=== PATIENT | female | born 1955 | race Caucasian/White ===

== ENCOUNTER 2017-09-22 10:05 | Inpatient (IN) | payer BC, OTHER ==
[~2017-09-22] VITALS: Ht 170.2 cm; Wt 99.8 kg
--- NOTE | ~2017-09-22 | EKG ---
[address] [place] [address] ELECTROCARDIOGRAM REPORT Name: SONG KINCAID [id number] Admission: 09/22/17 Attend Phys: Discharge: Date of : 59 Report #: [id number] THIS REPORT FOR: //name// [facility] ED Test Date: 2017-09-22 Test Time: 10:26:31 Pat Name: SONG KINCAID Department: Room: Gender: F Research Methodologist: Tania AVINA : 1955 Requested By: Rohini Yan Order Number: [id number] MD: Chetan Castillo Measurements Intervals [place] Rate: 61 P: 29 DC: 185 QRS: 18 QRSD: 107 T: 64 QT: 463 QTc: 467 Interpretive Statements Sinus rhythm Nonspecific T wave abnormality No previous ECG available for comparison Electronically Signed On 09-22-2017 11:00:42 SORORITY SUPERVISOR by Chetan Castillo [email or web address] <ELECTRONICALLY SIGNED> By: Chetan Castillo MD, [facility] 09/22/17 1100 1026 1026 Chetan Castillo MD, FACC /EPI
--- NOTE | ~2017-09-22 | CNG ---
[facility] [place] [address] CYTO-NONGYN REPORT PROCEDURE Name: RADHA LEONARD Room #: 405-P DIS IN M.R.#: [id number] Admission: 09/22/17 Date of : 59 Discharge: 09/28/17 Report #: [id number] Path Case #: [id number] CYTOPATHOLOGY REPORT COLLECTION DATE: 09/26/2017 RECEIVED DATE: 09/27/2017 SUBMITTING PHYS: Dr. Milan Juarez OTHER PHYS: Leonidas Duran M.D. Dr. Darlene Arenas CLINICAL HISTORY: Cholelithiasis, pancreatitis; See also [id number]. SPECIMEN(S) RECEIVED: A.Peritoneal fluid * * * * * * * * * * * * FINAL DIAGNOSIS: A. Peritoneal fluid: - No malignant epithelial cells identified. - Reactive mesothelial cells present in a background of marked acute inflammation and necroinflammatory debris. COMMENT: Please see also the surgical specimen ([id number]). PATHOLOGIST: Chloe Wise M.D. REPORT ELECTRONICALLY SIGNED BY: Chloe Wise M.D. DATE/TIME: 09/30/2017 13:02 * * * * * * * * * * * * GROSS PATHOLOGY: A. Peritoneal fluid: The specimen is submitted unfixed, labeled "Radha Leonard". Received by the Cytology Department is 25 mL of cloudy red fluid. One ThinPrep slide and a formalin fixed cell block were prepared. ([email or web address]) ASSOCIATE DIRECTOR QA(S): CARMEN Lara[facility] INITIAL CPT CODE(S): A; 47422, 70933 Professional services performed by [facility] at [facility] [address], [place] [address] Technical services performed by [facility] at [address] [place] [address], [address], [place] [address]. [facility] [address] [place] [address] CYTO-NONGYN REPORT PROCEDURE Name: RADHA LEONARD [facility] Room #: 405-P [facility] IN M.R.#: [id number] Admission: 09/22/17 Date of : 59 Discharge: 09/28/17 Report #: [id number] Path Case #: [id number] [facility] [address] [place] [address] [address] [place] [address] PHONE: [phone] DIRECTOR: Joseph Medley M.D. * * * END OF REPORT * * *
--- NOTE | ~2017-09-22 | O ---
[facility] [place] [address] [place] [address] OPERATIVE REPORT Name: SONG KINCAID Room #: 405-P ADM IN M.R.#: [id number] Admission: 09/22/17 Attend Phys: Leonidas Duran MD Discharge: Date of : 59 Report #: [id number] THIS REPORT FOR: //name// CC: Leonidas Christianson MD PREOPERATIVE DIAGNOSES: 1. Gallstone pancreatitis. 2. Hypertension. 3. Hypothyroidism. POSTOPERATIVE DIAGNOSES: 1. Gallstone pancreatitis. 2. Peritoneal implants. 3. Hypertension. 4. Hypothyroidism. PROCEDURE: 1. Laparoscopic cholecystectomy with intraoperative cholangiogram. 2. Peritoneal biopsy. 3. Omental biopsy. SURGEON: Milan Juarez MD CARTOGRAPHIC DRAFTER: Myriam Carrera NP ANESTHESIA: General endotracheal anesthesia and local anesthetic. ESTIMATED BLOOD LOSS: 10 mL. SPECIMEN: Peritoneal implants, omentum, peritoneal fluid, and gallbladder. COMPLICATIONS: None appreciated. INDICATIONS FOR PROCEDURE: This is a 61-year-old female patient who was seen in [facility] emergency room with acute onset abdominal pain. She was found to have a lipase of greater than 30,000. Imaging studies revealed a gallstone. Her lipase was followed and has precipitously decreased to a normal level of 191 today. The patient had undergone an MRCP that showed no evidence for choledocholithiasis. The patient presents now for laparoscopic cholecystectomy with intraoperative cholangiogram. OPERATIVE FINDINGS: Upon entrance into the abdominal cavity, peritoneal and omental implants were seen. Biopsies were taken. There was also bloody peritoneal fluid that was sent for cytology. She had mild acute cholecystitis changes, although these changes may have been more associated with the edema [facility] [address] [place] [address] OPERATIVE REPORT Name: SONG KINCAID Room #: 405-P ADM IN M.R.#: [id number] Admission: 09/22/17 Attend Phys: Leonidas Duran MD Discharge: Date of : 59 Report #: [id number] from the pancreatitis. Her cholangiogram showed filling of the biliary tree with no filling defects. Contrast flowed freely into the duodenal sweep. After removal of the gallbladder from the abdominal cavity, it was opened on the back table. Nonpigmented gallstones were present within the gallbladder. Cholesterolosis of the gallbladder wall was also present. The bile was significantly thickened. At the conclusion of the operation, sponge, needle, and instrument counts were correct. Other than the peritoneal implants, no significant intra-abdominal pathology was seen. I did inspect the uterus and ovaries as well as liver and colon. DESCRIPTION OF PROCEDURE IN DETAIL: After the benefits and risks of the procedure were explained to the patient which include but are not limited to risks of bleeding, infection, injury to the biliary tree, injury to adjacent organs, risk of DVT, pulmonary embolus, postoperative pain and postoperative expectations informed consent was obtained. The patient was identified in the preoperative holding area. The patient was then given IV antibiotics as documented in the chart to comply with the SCIP protocol. The patient was taken to the operating room and was placed in the supine position. The patient was given IV sedation and was intubated without incident. A time-out was performed to correctly identify the patient and procedure. SCDs were placed on the patient's bilateral lower extremities. The patient's abdomen was then prepped and draped in the standard sterile fashion with ChloraPrep. Local anesthetic was infiltrated into the skin and subcutaneous tissue. A periumbilical incision was made with a #15 blade scalpel. The 11-mm Visiport was then placed intraperitoneally with the 10-mm 0-degree angled laparoscope. After confirmation of placement within the peritoneal cavity, the scope was changed to a 10-mm 30 degree angled laparoscope and pneumoperitoneum was achieved with insufflation of carbon dioxide. The patient was placed in the reverse Trendelenburg position, rotated to the patient's left. A subxiphoid 5 mm and right subcostal 5 mm ports times 2 were placed under direct visualization after local anesthetic was infiltrated into the skin and subcutaneous tissue and appropriately sized incisions were made. Operative findings are as noted above. The dome of the gallbladder was retracted in a cephalad direction. The gallbladder peritoneum was scored medially and laterally after takedown of the adhesions to the gallbladder. Dissection was carried out around the cystic artery and cystic duct to identify each structure as entering directly into the gallbladder. The critical view as described above was seen. A Hemoclip was then placed on the cystic duct at its junction with the gallbladder. A ductotomy was made and the cholangiocatheter was passed into the cystic duct. A clip was placed, contrast was then injected and cholangiogram findings are as noted above. The cholangiocatheter was then removed and the cystic duct was triply clipped distal to the ductotomy. The duct was divided at the ductotomy site with the ultrasonic scalpel. The cystic artery was then divided with the device as well. The gallbladder was then dissected off the liver bed with energy device and after fully removing the gallbladder, it was [address] [address] OPERATIVE REPORT Name: SONG KINCAID Room #: 405-P [facility] IN M.R.#: [id number] Admission: 09/22/17 Attend Phys: Leonidas Duran MD Discharge: Date of : 59 Report #: [id number] placed in an Endopouch and then removed through the periumbilical port site. The abdominal cavity was then reentered. Other operative findings are as noted above. The liver bed was made hemostatic with a combination of electrocautery and other hemostatic agent as documented in the chart (Surgiflow), especially near the cholecysto-cystic junction. After ensuring final hemostasis and ensuring that the clips were secure, the periumbilical port site fascial opening was closed with a simple interrupted 0 PDS suture under direct visualization using the Luciano-Hung laparoscopic fascial closure device. The ports were removed and the abdominal cavity was desufflated. The fascial suture was tied. Interrupted subcuticular 4-0 Monocryl sutures and Dermabond were used to close the skin. The patient tolerated the procedure well. The patient was awakened, extubated and taken to the recovery room in stable condition with no apparent intraoperative complications. <ELECTRONICALLY SIGNED> By: Milan Juarez MD, FACS 09/26/17 1650 1430 1512 Milan Juarez MD, FACS /nt
--- NOTE | ~2017-09-22 | S ---
[facility] [place] [address] SURGICAL PATH RPT PROCEDURE Name: RADHA LEONARD Room #: 405-P ADM IN M.R.#: [id number] Admission: 09/22/17 Date of : 59 Discharge: Report #: [id number] Path Case #: [id number] PATHOLOGY REPORT COLLECTION DATE: 09/26/2017 RECEIVED DATE: 09/26/2017 SUBMITTING PHYS: Dr. Milan Juarez OTHER PHYS: Sonya Hall Dr. SPECIMEN(S) RECEIVED: A.Omental biopsy B.Gallbladder C.Peritoneal biopsy * * * * * * * * * * * * FINAL DIAGNOSIS: A. "Omental biopsy", biopsy: - Vascularized adipose tissue with scant fibrous tissue showing acute and chronic inflammation, necroinflammatory debris and discrete areas of fat necrosis. B. "Gallbladder", biopsy: - Acute and chronic cholecystitis. - Cholelithiasis. - Acute serositis with subserosal adipose tissue showing acute and chronic inflammation, necroinflammatory debris and discrete areas of fat necrosis. C. "Peritoneal biopsy", biopsy: - Vascularized fibroadipose connective tissue with acute and chronic inflammation, necroinflammatory debris and discrete areas of fat necrosis. (CLW:corey; 09/27/2017) PATHOLOGIST: Chloe Wise M.D. REPORT ELECTRONICALLY SIGNED BY: Chloe Wise M.D. DATE/TIME: 09/27/2017 14:39 * * * * * * * * * * * * GROSS PATHOLOGY: A. Received in formalin labeled "Radha Leonard, omental biopsy" and consists of glistening yellow orange and pink adipose tissue measuring 1.1 x 0.7 x 0.3 cm. The specimen is entirely submitted as A1. B. Received in formalin labeled "Radha Leonard, gallbladder" and consists of a previously opened gallbladder that measures 7 cm in length and 5.0 cm in circumference. The serosa is dark green. The [address] [address] SURGICAL PATH RPT PROCEDURE Name: RADHA LEONARD Room #: 405-P [facility] IN M.R.#: [id number] Admission: 09/22/17 Date of : 59 Discharge: Report #: [id number] Path Case #: [id number] wall averages 0.3 cm thick. The mucosa is velvety and green. The neck region is inked black. Also within the container are a few nodular yellow calculi ranging in size a 0.2 cm-0.7 cm and aggregate to 1.2 x 0.7 x 0.5 cm. Technical Specialist Cytogenetics sections are submitted as B1. C. Received in formalin labeled "Radha Leonard, peritoneal biopsy" and consists of 2 soft yellow tissue fragments measuring 0.2 x 0.2 x 0.1 cm and 0.9 x 0.3 x 0.2 cm. The specimen is totally submitted as C1. (ARELIS; 09/26/2017) CLINICAL HISTORY: Gallstones, pancreatitis INITIAL CPT CODE(S): A; 44925 B; 85474 C; 16698 Professional services performed by [facility] at [facility] [address], [place] [address] Technical services performed by [facility] at [address] [place] [address], [address], [place] [address]. [facility] [address] [place] [address] PHONE: [phone] DIRECTOR: Joseph Medley M.D. * * * END OF REPORT * * *
--- NOTE | ~2017-09-22 | HC ---
[facility] [place] [address] [address] [place] [address] CONSULTATION Name: SONG KINCAID Room #: 405-P ADM IN M.R.#: [id number] Admission: 09/22/17 Attend Phys: Leonidas Duran MD Discharge: Date of : 59 Report #: [id number] THIS REPORT FOR: //name// CC: Leonidas Duran Darlene Arenas DATE OF SERVICE: 09/22/2017 TYPE OF REPORT: General surgery consultation. ATTENDING PHYSICIAN: Leonidas Duran M.D. REASON FOR CONSULTATION: Abdominal pain. HISTORY OF PRESENT ILLNESS: This is a 61-year-old female patient who developed acute onset upper abdominal pain this morning around 8:00 a.m. She denies fever or chills but has had difficulty with nausea and vomiting. She was seen in the [facility] where she was found to have severely elevated lipase and abdominal ultrasound showing a gallstone in the neck of the gallbladder without acute cholecystitis changes. Multiple liver cysts were also seen. I have been asked to see the patient for further evaluation and treatment. PAST MEDICAL HISTORY: Significant for hypertension and hypothyroidism. PAST SURGICAL HISTORY: Bilateral bunionectomies. HOME MEDICATIONS: Include antihypertensive medication and thyroid medication. She is currently receiving meropenem and Dilaudid p.r.n. pain. ALLERGIES: AUGMENTIN causes inability to breathe; the patient denies oropharyngeal swelling. FAMILY HISTORY: Reviewed and noncontributory to this hospitalization and heart disease does run in her family. SOCIAL HISTORY: The patient denies use of tobacco or illicit drugs. She drinks alcohol socially. She works as a customer program specialist. REVIEW OF SYSTEMS: As per history of present illness and in addition: GENERAL: The patient denies fever or chills. Denies unintentional weight loss. HEENT: Denies changes in taste, vision, hearing or smell. RESPIRATORY: Denies shortness of breath, COPD or asthma. CARDIOVASCULAR: Denies chest pain or palpitations. GASTROINTESTINAL: As per history of present illness, denies bright red blood per rectum. GENITOURINARY: Denies dysuria, urgency, increased urinary frequency or [facility] [address] [place] [address] CONSULTATION Name: SONG KINCAID Room #: 405-P [facility] IN ..#: [id number] Admission: 09/22/17 Attend Phys: Leonidas Duran MD Discharge: Date of : 59 Report #: [id number] hematuria. MUSCULOSKELETAL: Denies myalgia, arthralgia or arthritis. NEUROLOGICAL: Denies headaches, numbness or tingling. PSYCHIATRIC: Denies depression, anxiety or suicidal ideations. SKIN AND INTEGUMENTARY: Denies new skin lesions, rashes or moles. ENDOCRINE: Denies polydipsia, polyuria, heat or cold intolerance. HEMATOLOGIC: Denies easy bleeding, bruising or anemia. All other review of systems is negative. PHYSICAL EXAMINATION: VITAL SIGNS: Temperature afebrile, blood pressure 110/76, pulse 65 and respirations 16. GENERAL: This is an obese (BMI 34.5) 61-year-old female patient accompanied by her and a son who appears uncomfortable. HEENT: Atraumatic and normocephalic with moist mucosal membranes. Oropharynx is clear. She has no scleral icterus. NECK: Supple. No appreciable lymphadenopathy. Trachea is midline. CHEST: Clear bilaterally. No crackles or wheezes. CARDIOVASCULAR: Regular rate and rhythm. S1 and S2. ABDOMEN: Obese and tender to palpation in the upper abdomen. She has mild guarding, but no rebound. No palpable masses. No appreciable hernias. GENITOURINARY: Normal external female genitalia. EXTREMITIES: No clubbing, cyanosis or edema. NEUROLOGICAL: Cranial nerves 2 through 12 grossly intact. PSYCHIATRIC: Normal mood and affect. SKIN AND INTEGUMENTARY: No acute inflammatory changes, rashes, lesions or jaundice is present. LABORATORY DATA: CBC shows a white blood cell count 17.5, hemoglobin 13.6, hematocrit 41.9 and platelets 331 with 77% segmented neutrophils. Electrolytes showed a sodium of 145, potassium 3.1, chloride 107, CO2 28, BUN 17, creatinine 1.1 and glucose 133. Lactate was mildly elevated at 2.2. Liver function tests were within normal limits; lipase was greater than 30,000. Urinalysis showed 1+ protein, few bacteria and few hyaline casts. RADIOLOGIC STUDIES: Abdominal ultrasound findings are as noted above. IMPRESSION AND PLAN: This is a 61-year-old female patient with acute onset upper abdominal pain, nausea and vomiting; who has a history of hypertension and hypothyroidism. She has evidence for acute pancreatitis, likely secondary to gallstones as at least 1 gallstone was seen within her gallbladder. She does not appear to have changes consistent with acute cholecystitis. We discussed the pathophysiology and natural history of acute gallstone pancreatitis as well as treatment alternatives and surgical options. The patient would benefit from a gastrointestinal consult and may require an ERCP. Ultimately, she would [address] [address] CONSULTATION Name: SONG KINCAID Room #: 405-P ADM IN M.R.#: [id number] Admission: 09/22/17 Attend Phys: Leonidas Duran MD Discharge: Date of : 59 Report #: [id number] benefit from cholecystectomy with cholangiogram. We discussed the risks, benefits, and expectations of the operation in detail. Her cholecystectomy would take place when her lipase is normal/near normal, which may be several days from now. She would benefit from bowel rest, IV fluid resuscitation and gastrointestinal/deep venous thrombosis prophylaxis. I will follow along with serial abdominal exams as well as labs and x-rays as necessary. I sincerely appreciate the opportunity to participate in the care of this patient and we will leave further recommendations and orders in the electronic medical record as appropriate. <ELECTRONICALLY SIGNED> By: Milan Juarez MD, FACS 09/23/17 1457 1321 0314 Milan Juarez MD, FACS /nt
[2017-09-22 10:41] LABS: ABSOLUTE NEUTROPHILS 13.4 thou/uL (1.4-8.2); BASOPHILS 0.3 % (0.0-2.0); EOSINOPHILS 1.2 % (0.0-3.0); HEMATOCRIT 41.9 % (37.0-47.0); HEMOGLOBIN 13.6 gm/dL (12.0-15.0); LYMPHOCYTES 14.1 % (24.0-44.0); MCH 27.3 pg (26.0-34.0); MCHC 32.5 g/dL (28.0-37.0); MONOCYTES 7.7 % (1.0-8.0); PLATELET COUNT 331 thou/uL (150-400); POLYS 76.7 % (36.0-66.0); RBC 4.99 mil/uL (4.20-5.00); RDW 14.5 % (10.5-14.5); WBC 17.5 thou/uL (4.0-11.0)
[2017-09-22 10:49] LABS: ANION GAP 10 mmol/L (7-16); BUN 17 mg/dL (7-18); CALCIUM 9.7 mg/dL (8.5-10.1); CHLORIDE 107 mmol/L (98-107); CO2 28 mmol/L (21-32); CREATININE 1.1 mg/dL (0.6-1.0); GLUCOSE 133 mg/dL (74-106); POTASSIUM 3.1 mmol/L (3.5-5.1); SODIUM 145 mmol/L (136-145)
[2017-09-22 11:04] LABS: SGOT 20 U/L (15-37); SGPT 29 U/L (30-65); TOTAL BILIRUBIN 0.5 mg/dL (<0.1-1.0); TROPONIN-I < 0.04 ng/mL (<0.06)
[2017-09-22 11:15] LABS: LIPASE > 30000 U/L (73-393)
[2017-09-22 11:25] VITALS: BP 98/44
[2017-09-22 11:33] LABS: URINE BILIRUBIN NEGATIVE (Negative); URINE BLOOD NEGATIVE (Negative); URINE CLARITY CLEAR; URINE COLOR YELLOW; URINE GLUCOSE-RANDOM* NEGATIVE (Negative); URINE KETONES NEGATIVE (Negative); URINE LEUKOCYTES NEGATIVE (Negative); URINE NITRITE NEGATIVE (Negative); URINE PROTEIN (DIPSTICK) 1+ (Negative); URINE UROBILINOGEN 0.2 E.U./dl (0.2-1.0)
[2017-09-22 12:56] LABS: HYALINE CASTS 0-3 Few /LPF (None Seen); MUCUS 0-3 Light strn/LPF (None Seen); SQUAMOUS 0-3 Few /LPF (0-3); URINE WBC 0-5 Rare /HPF (0-5)
[2017-09-22 12:57] LABS: BACTERIA 1-9 Few /HPF (None Seen); CRYSTALS None Seen /LPF (None Seen); URINE RBC None Seen /HPF (0-2)
[2017-09-22 13:09] VITALS: BP 110/76
[2017-09-22 13:53] VITALS: BP 104/65
[2017-09-22] MEDS ORDERED: LISINOPRIL10 MG PO (14:22)
[2017-09-22] MEDS ORDERED: SYNTHROID100 MCG PO (14:23)
[2017-09-22 19:50] VITALS: BP 153/95
[2017-09-22 19:52] VITALS: BP 153/95
[2017-09-22 23:46] VITALS: BP 159/107
[2017-09-23 04:00] VITALS: BP 148/94
[2017-09-23 06:19] LABS: ABSOLUTE NEUTROPHILS 14.8 thou/uL (1.4-8.2); BASOPHILS 0.1 % (0.0-2.0); HEMATOCRIT 42.4 % (37.0-47.0); HEMOGLOBIN 13.8 gm/dL (12.0-15.0); LYMPHOCYTES 2.6 % (24.0-44.0); MCH 27.6 pg (26.0-34.0); MCHC 32.6 g/dL (28.0-37.0); MCV 84.6 fL (80.0-100.0); MONOCYTES 8.4 % (1.0-8.0); PLATELET COUNT 270 thou/uL (150-400); POLYS 88.9 % (36.0-66.0); RBC 5.01 mil/uL (4.20-5.00); RDW 14.7 % (10.5-14.5); WBC 16.7 thou/uL (4.0-11.0)
[2017-09-23 06:39] LABS: ALBUMIN 3.8 g/dL (3.4-5.0); CALCIUM 9.1 mg/dL (8.5-10.1); CREATININE 1.2 mg/dL (0.6-1.0); POTASSIUM 4.6 mmol/L (3.5-5.1); TOTAL BILIRUBIN 0.6 mg/dL (<0.1-1.0); TOTAL PROTEIN 7.3 g/dL (6.4-8.2)
[2017-09-23 15:36] VITALS: BP 101/71
[2017-09-23 21:27] VITALS: BP 146/92
[2017-09-24 05:18] VITALS: BP 130/73
[2017-09-24 07:47] LABS: HEMATOCRIT 40.1 % (37.0-47.0); HEMOGLOBIN 12.8 gm/dL (12.0-15.0); MCH 27.4 pg (26.0-34.0); MCV 85.7 fL (80.0-100.0); RBC 4.67 mil/uL (4.20-5.00); WBC 17.4 thou/uL (4.0-11.0)
[2017-09-24 07:58] LABS: ALBUMIN 3.4 g/dL (3.4-5.0); CALCIUM 9.3 mg/dL (8.5-10.1); CREATININE 1.1 mg/dL (0.6-1.0); POTASSIUM 4.6 mmol/L (3.5-5.1); TOTAL BILIRUBIN 0.6 mg/dL (<0.1-1.0); TOTAL PROTEIN 6.6 g/dL (6.4-8.2)
[2017-09-24 08:37] VITALS: BP 148/94
[2017-09-24 16:04] VITALS: BP 168/101
[2017-09-24 20:00] VITALS: BP 163/97
[2017-09-25 04:00] VITALS: BP 182/93
[2017-09-25 04:57] LABS: HEMATOCRIT 35.4 % (37.0-47.0); HEMOGLOBIN 11.6 gm/dL (12.0-15.0); MCH 27.7 pg (26.0-34.0); MCHC 32.7 g/dL (28.0-37.0); MCV 84.9 fL (80.0-100.0); PLATELET COUNT 197 thou/uL (150-400); RBC 4.17 mil/uL (4.20-5.00); RDW 14.5 % (10.5-14.5)
[2017-09-25 05:19] LABS: ALBUMIN 2.8 g/dL (3.4-5.0); CALCIUM 8.6 mg/dL (8.5-10.1); CREATININE 0.7 mg/dL (0.6-1.0); POTASSIUM 3.8 mmol/L (3.5-5.1); TOTAL BILIRUBIN 0.9 mg/dL (<0.1-1.0)
[2017-09-25 07:51] LABS: ABSOLUTE NEUTROPHILS 8.1 thou/uL (1.4-8.2); ANISOCYTOSIS SLIGHT; METAMYELOCYTES 2 %
[2017-09-25 08:24] VITALS: BP 157/105
[2017-09-25 16:33] VITALS: BP 161/121
[2017-09-25 21:07] VITALS: BP 165/116
[2017-09-26] VITALS (9 sets, daily range): BP systolic 142–184; BP diastolic 80–114
[2017-09-26 05:49] LABS: HEMATOCRIT 33.3 % (37.0-47.0); MCH 27.5 pg (26.0-34.0); MCV 83.3 fL (80.0-100.0); PLATELET COUNT 195 thou/uL (150-400); RBC 3.99 mil/uL (4.20-5.00); RDW 14.6 % (10.5-14.5); WBC 12.1 thou/uL (4.0-11.0)
[2017-09-26 06:05] LABS: ALBUMIN 2.7 g/dL (3.4-5.0); CREATININE 0.6 mg/dL (0.6-1.0); TOTAL BILIRUBIN 0.9 mg/dL (<0.1-1.0); TOTAL PROTEIN 5.8 g/dL (6.4-8.2)
[2017-09-26 07:39] LABS: ABSOLUTE NEUTROPHILS 8.3 thou/uL (1.4-8.2)
[2017-09-26 07:40] LABS: ANISOCYTOSIS 1+
[2017-09-27] VITALS: BP 125/107
[2017-09-27 04:00] VITALS: BP 164/99
[2017-09-27 04:00] LABS: CALCIUM 8.2 mg/dL (8.5-10.1); CREATININE 0.7 mg/dL (0.6-1.0); POTASSIUM 3.6 mmol/L (3.5-5.1)
[2017-09-27 07:48] VITALS: BP 148/93
[2017-09-27] MEDS ORDERED: HYDROCODON-ACE1 EAC7 PO (08:26)
[2017-09-27 20:41] VITALS: BP 151/99
[2017-09-28 04:07] VITALS: BP 97/72
[2017-09-28 09:02] VITALS: BP 162/109
[2017-09-28 09:29] VITALS: BP 162/109
[2017-09-28 10:51] VITALS: BP 160/96
== END 2017-09-28 12:15 | disposition home or self-care (01) | DRG 419 ==
LOC: ER 10:05 → EROBS 11:39 → 4N 11:39
PROVIDERS: Family Medicine; Hospitalist; Physician Assistant; Specialist; Surgery
PROC: 0DBU3ZX Excision of Omentum, Percutaneous Approach, Diagnostic (ICD-10-PCS; principal; 2017-09-26)
PROC: 0DBW3ZZ Excision of Peritoneum, Percutaneous Approach (ICD-10-PCS; principal; 2017-09-26)
PROC: 0FT44ZZ Resection of Gallbladder, Percutaneous Endoscopic Approach (ICD-10-PCS; principal; 2017-09-26)
PROC: BF121ZZ Fluoroscopy of Gallbladder using Low Osmolar Contrast (ICD-10-PCS; principal; 2017-09-26)
DX: K85.10 Biliary acute pancreatitis without necrosis or infection (principal); I10 Essential (primary) hypertension; E03.9 Hypothyroidism, unspecified; N80.3 Endometriosis of pelvic peritoneum; K80.20 Calculus of gallbladder without cholecystitis without obstruction; E87.6 Hypokalemia; Z28.21 Immunization not carried out because of patient refusal; Z88.1 Allergy status to other antibiotic agents; Z88.8 Allergy status to other drugs, medicaments and biological substances
CPT/HCPCS: 10091; 50010; 50101; 50249; 50411; 50555; 50558; 50900; 50962; 51489; 51751; 51975; 52265; 52266; 53307; 54022; 54118; 55245; 55317; 56462; 56525; 56526; 62110; 62900; 70005

== ENCOUNTER 2017-10-04 18:50 | Inpatient (IN) | payer BC, OTHER ==
[~2017-10-04] VITALS: Ht 167.6 cm; Wt 99.8 kg
--- NOTE | ~2017-10-04 | EKG ---
[address] [facility] [place] [address] ELECTROCARDIOGRAM REPORT Name: SONG KINCAID Room #: 444-P ADM IN M.R.#: [id number] Admission: 10/04/17 Attend Phys: Adam [place] DO Discharge: Date of : 59 Report #: [id number] THIS REPORT FOR: //name// [facility] ED Test Date: 2017-10-04 Test Time: 20:29:09 Pat Name: SONG KINCAID Department: Room: 444 Gender: F [employer]: DUONG : 1955 Requested By: Jae Butt Order Number: [id number] MD: Chetan Castillo Measurements Intervals [place] Rate: 84 P: 41 TN: 143 QRS: -8 QRSD: 99 T: 61 QT: 434 QTc: 514 Interpretive Statements Sinus rhythm Inferior infarct, old Consider anterior infarct Prolonged QT interval Compared to ECG 09/22/2017 10:26:31 Poor R wave progression is now present Electronically Signed On 10-07-2017 7:19:40 GENERAL LABOR FORKLIFT OPERATOR by Chetan Castillo [email or web address] <ELECTRONICALLY SIGNED> By: Chetan Castillo MD, [facility] 10/07/17718 28 28 Chetan Castillo MD, [facility] /EPI
--- NOTE | ~2017-10-04 | HC ---
[facility] [place] [address] CONSULTATION Name: SONG KINCAID Room #: 444-P ADM IN M.R.#: [id number] Admission: 10/04/17 Attend Phys: German Gutierrez MD Discharge: Date of : 59 Report #: [id number] THIS REPORT FOR: //name// CC: German Arenas DATE OF SERVICE: 10/04/2017 GENERAL SURGERY CONSULT REFERRING PROVIDER: German Gutierrez M.D. REASON FOR CONSULTATION: Pancreatic pseudocyst. HISTORY OF PRESENT ILLNESS: The patient is a 61-year-old obese female who is nearly 2 weeks status post laparoscopic cholecystectomy for gallstone pancreatitis. At the time of the most recent admission, her lipase was initially greater than 30,000, which precipitously came down to an appropriate level with an MRCP showing no filling defects, thereby suspecting a passed common duct stone. The patient underwent an uncomplicated laparoscopic cholecystectomy and discharged home. Over the recent past couple of days, she has been complaining of abdominal fullness and early satiety as well as lower extremity edema and presented to the Emergency Room for workup, which showed no evidence of abnormality from a lab standpoint with the exception of a leukocytosis with a white blood cell count of 21,[address] scan of the abdomen and pelvis showed numerous fluid collections in the upper abdomen, suspected to be pancreatic pseudocyst with 1 large one compressing the gastric antrum and first portion of the duodenum causing a relative gastric outlet obstruction. For that reason, I am asked to evaluate which is an issue separate to her recent gallstone pancreatitis. PAST MEDICAL HISTORY: Recent gallstone pancreatitis, hypertension, hypothyroidism and obesity. HOME MEDICATIONS: Lisinopril and Synthroid. ALLERGIES: AMOXICILLIN, WHICH SHE STATES CAUSES DIFFICULTY BREATHING. FAMILY HISTORY: Reviewed and noncontributory. SOCIAL HISTORY: The patient does not utilize tobacco or illicit drugs. She does drink alcohol socially, but she states never to excess. REVIEW OF SYSTEMS: GENERAL: The patient denies nocturnal fevers or chills. HEENT: No change in vision or change in hearing. [facility] [address] [place] [address] CONSULTATION Name: SONG KINCAID Room #: 444-P [facility] IN M.R.#: [id number] Admission: 10/04/17 Attend Phys: German Gutierrez MD Discharge: Date of : 59 Report #: [id number] NECK: No swelling or difficulty swallowing. HEART: No chest pain or palpitations. LUNGS: No cough or shortness of breath. ABDOMEN: Abdominal fullness and early satiety. GENITOURINARY: No dysuria or hematuria. ENDOCRINE: No polyuria or polydipsia. HEMATOLOGIC: No history of bleeding or easy bruising. EXTREMITIES: No history of weakness or limited range of motion. NEUROLOGIC: No history of syncope or near syncopal episodes. SKIN AND INTEGUMENT: No history of abnormal lesions or moles. PSYCHIATRIC: No history of anxiety or depression. PHYSICAL EXAMINATION: VITAL SIGNS: Temperature 97.9, pulse 98, respirations 20, blood pressure 156/97. GENERAL: Alert, in no acute distress. HEENT: Normocephalic, atraumatic. Pupils equal, round, reactive to light. NECK: Supple, without lymphadenopathy. Trachea midline. HEART: Regular rate and rhythm. LUNGS: Clear to auscultation bilaterally. ABDOMEN: Soft, moderate distention in the upper abdomen with minimal pain to deep palpation in the epigastrium. No guarding, no rebound, no peritoneal signs or symptoms. GENITOURINARY: Normal external female genitalia. EXTREMITIES: 2+ edema of the bilateral lower extremities. Negative Homans sign. NEUROLOGIC: Cranial nerves 2-12 are grossly intact. PSYCHIATRIC: Normal mood and affect. SKIN AND INTEGUMENT: No abnormal lesions or moles. LABORATORY AND X-RAY DATA: CBC shows white blood cell count of 21.4 thousand, hemoglobin 11.8, platelets 561,000. Creatinine 0.7. Liver function enzymes are normal. Lipase is normal as well at 303. Albumin is low at 2.7. Her potassium is slightly low as well. BNP is only slightly elevated at 561. Chest x-ray shows mild pleural effusions. A CT scan of the abdomen and pelvis shows innumerable fluid collections in the upper abdomen with 1 large one surrounding the pancreas and impinging upon the gastric antrum and first portion of duodenum, which is most likely a pancreatic pseudocyst causing a partial gastric outlet obstruction. ASSESSMENT AND PLAN: A 61-year-old obese female who presents with upper abdominal pain, nausea and early satiety as well as bilateral lower extremity edema. She was found to have numerous pancreatic pseudocysts with 1 large one causing impingement on the gastric antrum and a relative gastric outlet obstruction. In addition, she does have severe protein calorie malnutrition with an initial albumin of 2.7, which will likely go lower once [facility] [address] [place] [address] CONSULTATION Name: SONG KINCAID Room #: 444-P ADM IN M.R.#: [id number] Admission: 10/04/17 Attend Phys: German Gutierrez MD Discharge: Date of : 59 Report #: [id number] appropriate hydration has been initiated. At this time, management for this acute pancreatic pseudocyst, which is undoubtedly secondary to her gallstone pancreatitis of recent will be conservative expectant management with largely n.p.o. status, IV fluid rehydration and she may need Lasix as well to mobilize her edematous fluid from her tissues back to the intravascular space, but I will defer that to Internal Medicine. As from a surgical standpoint, we will follow along with conservative care at this time and leave any further recommendations in the patient's chart as appropriate. I sincerely appreciate this consult. <ELECTRONICALLY SIGNED> By: Yandel Pérez MD, FACS 10/06/17 [id number] Yandel Pérez MD, FACS /nt
[~2017-10-04 18:50] MED LIST: HYDROCODON-ACE1 EAC7 PO; LISINOPRIL10 MG PO; SYNTHROID100 MCG PO
[2017-10-04 18:55] VITALS: BP 176/120; BP 188/116
[2017-10-04 20:27] LABS: HEMATOCRIT 35.4 % (37.0-47.0); HEMOGLOBIN 11.8 gm/dL (12.0-15.0); MCH 27.2 pg (26.0-34.0); MCHC 33.4 g/dL (28.0-37.0); MCV 81.5 fL (80.0-100.0); RBC 4.34 mil/uL (4.20-5.00); WBC 21.4 thou/uL (4.0-11.0)
[2017-10-04 20:35] LABS: ANION GAP 9 mmol/L (7-16); BUN 7 mg/dL (7-18); CALCIUM 9.6 mg/dL (8.5-10.1); CHLORIDE 97 mmol/L (98-107); CO2 32 mmol/L (21-32); CREATININE 0.7 mg/dL (0.6-1.0); GLUCOSE 102 mg/dL (74-106); SODIUM 138 mmol/L (136-145)
[2017-10-04 20:44] LABS: ALBUMIN 2.7 g/dL (3.4-5.0); LIPASE 303 U/L (73-393); SGOT 37 U/L (15-37); SGPT 29 U/L (30-65); TOTAL BILIRUBIN 0.7 mg/dL (<0.1-1.0); TROPONIN-I < 0.04 ng/mL (<0.06)
[2017-10-04 23:23] VITALS: BP 158/107
[2017-10-05 04:09] VITALS: BP 150/98
[2017-10-05 07:27] LABS: HEMATOCRIT 31.2 % (37.0-47.0); HEMOGLOBIN 10.3 gm/dL (12.0-15.0); MCHC 33.2 g/dL (28.0-37.0); MCV 81.3 fL (80.0-100.0); RBC 3.83 mil/uL (4.20-5.00); RDW 15.4 % (10.5-14.5); WBC 19.9 thou/uL (4.0-11.0)
[2017-10-05 07:38] VITALS: BP 169/103
[2017-10-05 07:40] LABS: CALCIUM 8.4 mg/dL (8.5-10.1); CREATININE 0.6 mg/dL (0.6-1.0); POTASSIUM 3.3 mmol/L (3.5-5.1)
[2017-10-05 11:31] VITALS: BP 137/84
[2017-10-05 16:00] VITALS: BP 161/99
[2017-10-05 19:19] VITALS: BP 154/86
[2017-10-06 00:50] VITALS: BP 143/86
[2017-10-06 04:01] VITALS: BP 162/89
[2017-10-06 09:41] VITALS: BP 153/83
[2017-10-06 18:53] VITALS: BP 143/87
[2017-10-06 20:15] LABS: ABSOLUTE NEUTROPHILS 14.8 thou/uL (1.4-8.2); BASOPHILS 0.5 % (0.0-2.0); EOSINOPHILS 0.4 % (0.0-3.0); HEMOGLOBIN 10.7 gm/dL (12.0-15.0); LYMPHOCYTES 8.3 % (24.0-44.0); MCH 27.4 pg (26.0-34.0); MCHC 33.5 g/dL (28.0-37.0); MCV 81.8 fL (80.0-100.0); MONOCYTES 10.4 % (1.0-8.0); POLYS 80.4 % (36.0-66.0); RBC 3.91 mil/uL (4.20-5.00); RDW 15.3 % (10.5-14.5); WBC 18.4 thou/uL (4.0-11.0)
[2017-10-06 20:16] LABS: PLATELET COUNT 640 thou/uL (150-400)
[2017-10-06 20:19] LABS: CALCIUM 8.4 mg/dL (8.5-10.1); CREATININE 0.7 mg/dL (0.6-1.0); POTASSIUM 3.6 mmol/L (3.5-5.1)
[2017-10-06 23:51] VITALS: BP 146/89
[2017-10-07 04:33] VITALS: BP 141/78
[2017-10-07 06:37] LABS: ABSOLUTE NEUTROPHILS 13.6 thou/uL (1.4-8.2); BASOPHILS 0.7 % (0.0-2.0); EOSINOPHILS 0.7 % (0.0-3.0); HEMATOCRIT 30.3 % (37.0-47.0); LYMPHOCYTES 7.4 % (24.0-44.0); MCH 27.2 pg (26.0-34.0); MCHC 33.1 g/dL (28.0-37.0); MCV 82.2 fL (80.0-100.0); MONOCYTES 11.5 % (1.0-8.0); PLATELET COUNT 620 thou/uL (150-400); POLYS 79.7 % (36.0-66.0); RBC 3.69 mil/uL (4.20-5.00); RDW 15.3 % (10.5-14.5); WBC 17.1 thou/uL (4.0-11.0)
[2017-10-07 06:44] LABS: CALCIUM 8.1 mg/dL (8.5-10.1); CREATININE 0.7 mg/dL (0.6-1.0); POTASSIUM 3.4 mmol/L (3.5-5.1)
[2017-10-07 08:09] VITALS: BP 133/83
[2017-10-07 15:40] VITALS: BP 151/83
[2017-10-07 19:48] VITALS: BP 137/72
[2017-10-08 03:06] VITALS: BP 138/79
[2017-10-08 06:04] LABS: ABSOLUTE NEUTROPHILS 12.7 thou/uL (1.4-8.2); BASOPHILS 0.5 % (0.0-2.0); EOSINOPHILS 0.7 % (0.0-3.0); HEMATOCRIT 28.4 % (37.0-47.0); HEMOGLOBIN 9.3 gm/dL (12.0-15.0); MCHC 32.6 g/dL (28.0-37.0); MCV 82.7 fL (80.0-100.0); PLATELET COUNT 633 thou/uL (150-400); POLYS 78.8 % (36.0-66.0); RBC 3.44 mil/uL (4.20-5.00); RDW 15.4 % (10.5-14.5); WBC 16.1 thou/uL (4.0-11.0)
[2017-10-08 06:25] LABS: CALCIUM 8.3 mg/dL (8.5-10.1); CREATININE 0.7 mg/dL (0.6-1.0); POTASSIUM 3.8 mmol/L (3.5-5.1); TOTAL BILIRUBIN 0.3 mg/dL (<0.1-1.0); TOTAL PROTEIN 5.2 g/dL (6.4-8.2)
[2017-10-08 08:07] VITALS: BP 136/82
[2017-10-08 15:36] VITALS: BP 137/78
[2017-10-08 19:39] VITALS: BP 151/104
[2017-10-09 04:23] VITALS: BP 137/79
[2017-10-09 08:45] VITALS: BP 139/90
[2017-10-09 17:15] VITALS: BP 137/96
[2017-10-09 20:15] VITALS: BP 144/92
[2017-10-10 02:54] VITALS: BP 138/79
[2017-10-10 05:41] LABS: HEMATOCRIT 29.1 % (37.0-47.0); HEMOGLOBIN 9.9 gm/dL (12.0-15.0); MCH 27.8 pg (26.0-34.0); MCHC 33.9 g/dL (28.0-37.0); PLATELET COUNT 638 thou/uL (150-400); RBC 3.55 mil/uL (4.20-5.00); RDW 15.2 % (10.5-14.5); WBC 12.7 thou/uL (4.0-11.0)
[2017-10-10 05:54] LABS: CALCIUM 8.5 mg/dL (8.5-10.1); CREATININE 0.6 mg/dL (0.6-1.0); POTASSIUM 3.9 mmol/L (3.5-5.1); TOTAL BILIRUBIN 0.3 mg/dL (<0.1-1.0); TOTAL PROTEIN 5.5 g/dL (6.4-8.2)
[2017-10-10 08:20] VITALS: BP 136/86
[2017-10-10 08:22] LABS: ABSOLUTE NEUTROPHILS 10.3 thou/uL (1.4-8.2); PLATELET ESTIMATE INCREASED
[2017-10-10 16:02] VITALS: BP 138/88
[2017-10-10 19:49] VITALS: BP 144/89
[2017-10-11 06:14] LABS: HEMATOCRIT 30.4 % (37.0-47.0); HEMOGLOBIN 9.9 gm/dL (12.0-15.0); MCH 26.7 pg (26.0-34.0); MCHC 32.5 g/dL (28.0-37.0); PLATELET COUNT 596 thou/uL (150-400); WBC 12.4 thou/uL (4.0-11.0)
[2017-10-11 06:28] LABS: CALCIUM 8.7 mg/dL (8.5-10.1); CREATININE 0.7 mg/dL (0.6-1.0); POTASSIUM 3.9 mmol/L (3.5-5.1)
[2017-10-11 07:28] LABS: ABSOLUTE NEUTROPHILS 9.3 thou/uL (1.4-8.2)
[2017-10-11 07:29] LABS: ANISOCYTOSIS 1+; POLYCHROMASIA OCCASIONAL
[2017-10-11 07:58] VITALS: BP 133/90
[2017-10-11 08:00] VITALS: BP 133/90
[2017-10-11 16:04] VITALS: BP 133/91
[2017-10-11 19:47] VITALS: BP 134/89
[2017-10-12 03:52] LABS: HEMATOCRIT 29.7 % (37.0-47.0); MCH 27.5 pg (26.0-34.0); MCHC 33.6 g/dL (28.0-37.0); MCV 81.9 fL (80.0-100.0); PLATELET COUNT 607 thou/uL (150-400); RBC 3.63 mil/uL (4.20-5.00); RDW 15.2 % (10.5-14.5); WBC 12.5 thou/uL (4.0-11.0)
[2017-10-12 04:06] LABS: ALBUMIN 2.1 g/dL (3.4-5.0); CALCIUM 8.6 mg/dL (8.5-10.1); CREATININE 0.7 mg/dL (0.6-1.0); POTASSIUM 4.1 mmol/L (3.5-5.1); TOTAL BILIRUBIN 0.4 mg/dL (<0.1-1.0); TOTAL PROTEIN 5.6 g/dL (6.4-8.2)
[2017-10-12 05:13] LABS: ABSOLUTE NEUTROPHILS 8.1 thou/uL (1.4-8.2); ATYPICAL LYMPHS 4 %; METAMYELOCYTES 1 %
[2017-10-12 06:10] VITALS: BP 136/84
[2017-10-12 08:00] VITALS: BP 146/111
[2017-10-12] MEDS ORDERED: HYDROCODON-ACE1 EAC7 PO (09:54)
[2017-10-12] MEDS ORDERED: FLAGYL500 MG PO (09:54)
[2017-10-12] MEDS ORDERED: CIPRO500 MG PO (09:54)
[2017-10-12] MEDS ORDERED: ZOFRAN ODT4 MG PO (09:56)
[2017-10-12] MEDS ORDERED: PROTONIX 20 MG20 M1 PO (09:56)
[2017-10-12 10:37] VITALS: BP 146/111
== END 2017-10-12 13:01 | disposition home or self-care (01) | DRG 438 ==
LOC: ER 18:50 → 4S 22:25 → EROBS 22:25 → 4S 23:23
PROVIDERS: Emergency Medicine; Family Medicine; Nurse Practitioner
DX: K86.3 Pseudocyst of pancreas (principal); E43 Unspecified severe protein-calorie malnutrition; I10 Essential (primary) hypertension; E03.9 Hypothyroidism, unspecified; E66.9 Obesity, unspecified; E87.6 Hypokalemia; D72.829 Elevated white blood cell count, unspecified; K21.9 Gastro-esophageal reflux disease without esophagitis; Z68.35 Body mass index [BMI] 35.0-35.9, adult; Z90.49 Acquired absence of other specified parts of digestive tract; Z79.899 Other long term (current) drug therapy; Z88.1 Allergy status to other antibiotic agents; Z88.8 Allergy status to other drugs, medicaments and biological substances
CPT/HCPCS: 10100

== ENCOUNTER → 2021-04-06 | Outpatient (CLI) | payer BC, OTHER ==
[~2021-04-06] MED LIST changes: +CIPRO500 MG PO; +FLAGYL500 MG PO; +PROTONIX 20 MG20 M1 PO; +ZOFRAN ODT4 MG PO
== END ==
LOC: RAD 09:33
PROVIDERS: ATTEND Obstetrics & Gynecology
DX: Z12.31 Encounter for screening mammogram for malignant neoplasm of breast (principal); N63.20 Unspecified lump in the left breast, unspecified quadrant

== ENCOUNTER → 2021-04-10 | Outpatient (CLI) | payer BC, OTHER | LOC: BC 09:48 | PROVIDERS: ATTEND Obstetrics & Gynecology | DX: N60.02 Solitary cyst of left breast (principal); N63.21 Unspecified lump in the left breast, upper outer quadrant ==